=== PATIENT | female | born 1985 | race Caucasian/White ===

== ENCOUNTER 2023-09-01 08:55 | Emergency (ER) | payer OTHER, SELFPAY ==
[2023-09-01 08:58] VITALS: BP 136/89; PULSE 98; RESP 19; TEMP 36.3; O2SAT 100
--- NOTE | 2023-09-01 09:08 | ED.WOUNDLAC ---
HPI - Wound/Laceration General Chief Complaint: Wound/Laceration Stated Complaint: finger laceration Time Seen by Provider: 09/01/23 09:01 Source: patient and family Mode of arrival: ambulatory Limitations: no limitations History of Present Illness HPI narrative: 37-year-old female presents with laceration to the left index finger palmar surface earlier this morning should cut with a knife while she was cooking the area is non gaping well-approximated, not up-to-date with tetanus. No other injuries has good range of motion no numbness or tingling. Onset (ago): hour(s) Location: other Extremity Location: Left: hand ( index finger approximated laceration non gaping) Place: home Patient tetanus UTD: No Context: accidental Related Data Home Medications Medication Instructions Recorded Confirmed No Home Medications 09/01/23 09/01/23 Allergies Allergy/AdvReac Type Severity Reaction Status Date / Time No Known Allergies Allergy Verified 09/01/23 09:04 Review of Systems Review of Systems: All systems reviewed & are unremarkable except as noted in HPI and below PMFSH Past Medical History Medical History Patient denies medical problems Exam Const: General: healthy appearing Nutritional Appearance: well nourished Orientation/consciousness: patient oriented x3 Limitations: no limitations Resp: Effort & Inspection: normal respiratory effort Auscultation: clear to auscultation bilaterally Cardio: Rate: regular rate Rhythm: regular rhythm Extrem: Other: laceration non gaping well approximated to the palmar surface of her left index finger approximately 2cm in Course Course Emergency Course: Dermabond was used as a cell was given to update patient with her tetanus. Vital Signs Vital signs: Vital Signs Temperature 36.3 C L 09/01/23 08:58 Pulse Rate 98 09/01/23 08:58 Respiratory Rate 19 09/01/23 08:58 Blood Pressure 136/89 09/01/23 08:58 Pulse Oximetry 100 09/01/23 08:58 Oxygen Delivery Room Air 09/01/23 08:58 Temperature 36.3 C L 09/01/23 08:58 Pulse Rate 98 09/01/23 08:58 Respiratory Rate 19 09/01/23 08:58 Blood Pressure 136/89 09/01/23 08:58 Pulse Oximetry 100 03/30/24 08:58 Oxygen Delivery Room Air 09/01/23 08:58 Procedures Laceration Laceration 1: Date: 09/01/23 Time: 09:11 Site: upper extremity Side (If applicable): left Size (cm): 2 Description: linear and flap Pre-repair: wound explored and irrigated ====== Skin Level ====== Skin layer closed with: dermabond ====== Subcutaneous Layer ====== ====== Muscle Layer ====== ====== Tendon Layer ====== Critical Care Time Critical Care Time Critical Care Time: No Discharge Plan Discharge Clinical Impression: Laceration Patient Disposition: Home, Self-Care Condition: Stable Instructions: Antibiotic Form, Skin Adhesive Care (ED), Laceration (ED) Additional Instructions: Advised to keep area clean and covered and follow up with primary if symptoms persist or worsen. Prescriptions: No Action No Home Medications Follow-up/Referrals: UNKNOWN,DOCTOR [Primary Care Provider] - Time of Disposition: 09:12
[2023-09-01] MEDS: TETANUS,DIPHTHERIA,AC PERTUSSIS ADULT 0.5 ML (ADACEL) IM (09:24)
[2023-09-01 09:38] VITALS: BP 136/89; PULSE 98; RESP 19; TEMP 36.3; O2SAT 100
== END 2023-09-01 09:38 | disposition home or self-care (01) ==
LOC: CHSED 09:19
PROVIDERS: Emergency Provider Emergency Medicine
DX: S61.211A Laceration without foreign body of left index finger without damage to nail, initial encounter (principal); W26.0XXA Contact with knife, initial encounter; Z23 Encounter for immunization
CPT/HCPCS: 12001; 90471; 90715; 99282